=== PATIENT | female | born 1980 | race Two or more races ===

== ENCOUNTER 2025-07-10 11:15 | Outpatient (REF) | payer MEDICAID, SELFPAY ==
--- NOTE | ~2025-07-10 | MM_ITS ---
EXAMINATION(S): 1. MM DIAGNOSTIC DIGITAL BREAST TOMOSYNTHESIS, BILATERAL 2. Targeted ultrasound of the left breast CLINICAL INFORMATION: Left breast lump at 1:00-3:00 COMPARISON: No prior images available for comparison. This is a baseline study. TECHNIQUE: Digital breast tomosynthesis is performed in both the mediolateral oblique and craniocaudal views along with computer-aided detection (CAD). Synthesized 2D images are generated from the tomosynthesis. Skin BB marker was placed at the location of the palpable concern as indicated by the patient in the upper outer quadrant of the left breast. FINDINGS: BREAST COMPOSITION: The breasts are extremely dense, which lowers the sensitivity of mammography (ACR BI-RADS breast composition Category d). RIGHT BREAST: No significant masses, suspicious calcifications or other abnormalities are seen. LEFT BREAST: No suspicious mammographic findings adjacent to the skin BB marker. No significant masses, suspicious calcifications or other abnormalities are seen. Targeted ultrasound of the left breast was performed at the location of the palpable concern as indicated by the patient. The survey reveals a 2.8 x 1.6 x 2.3 cm simple cyst at 2 o'clock position at 2 cm from the nipple that correlates with the palpable concern. Additional simple cysts were noted in the vicinity, for example 3.0 x 0.9 x 2.5 cm at 2 o'clock position at 1 cm from the nipple. MM/MM tomosynthesis diagnostic BI IMPRESSION: RIGHT BREAST: Negative, no mammographic evidence of malignancy. Normal interval follow-up is recommended in 12 months. LEFT BREAST: Multiple simple cysts. Benign, no evidence of malignancy. Clinical follow-up is recommended. Otherwise, normal interval follow-up mammogram is recommended in 12 months. ASSESSMENT: BI-RADS 2 - Benign Findings RECOMMENDATION: 1. Patient should be managed based on the clinical impression. 2. Otherwise, routine annual screening mammography. Results were provided to the patient at time of visit by the technologist. This patient's information was entered into a reminder system with a target due date for their next mammogram. Electronically signed by: Lawrence Cummings MD 07/10/2025 01:45 PM EDT Workstation: [id number]
== END 2025-07-10 11:16 | disposition home or self-care (01) ==
LOC: HO.MAMMO 11:15
PROVIDERS: Visit Provider Advanced Practice Midwife
DX: N63.25 Unspecified lump in the left breast, overlapping quadrants (principal)
CPT/HCPCS: 76642; 77062; 77066

== ENCOUNTER → 2025-07-10 11:30 | Outpatient (BNV) | payer MEDICAID, SELFPAY | PROVIDERS: Visit Provider Radiology Body Imaging | DX: N60.12 Diffuse cystic mastopathy of left breast (principal) | CPT/HCPCS: 76642; 77062; 77066 ==